=== PATIENT | female | born 1960 | race Two or more races ===

== ENCOUNTER 2024-11-21 09:23 | Emergency (ER) | payer MEDICARE, SELFPAY ==
--- NOTE | 2024-11-21 10:23 | XR_ITS ---
Examination: Wrist, right 3 views Technique: Wrist AP, oblique, lateral 3 views Date and time of exam: November 21, 2024 1027 hrs. Indications: Patient fell last week with injury to the wrist, wrist pain Findings: No definite acute fracture No dislocation No opaque foreign body Impression: No definite acute fracture
[2024-11-21 10:24] VITALS: BP 140/71; PULSE 51; RESP 16; TEMP 36.8; O2SAT 98; BMI 27.9
--- NOTE | 2024-11-21 10:58 | PD.EDHAND ---
Upper Extremity Injury RME/HPI General Chief Complaint: Hand/Wrist Problems Stated Complaint: right wrist pain s/p fall last sun. Time Seen by Provider: 11/21/24 09:33 Source: patient Arrival date/time: 11/21/24 09:23 This is a case of 64-year-old female who came into the emergency room due to right wrist pain and swelling history of present illness started 1 week prior to arrival in the emergency room when the patient accidentally fell and landed on the right wrist since then patient have pain and swelling denies any other injury denies any head neck chest or abdominal injury denies any numbness weakness or tingling sensation Limitations: no limitations Related Data Home Medications ?Medication ?Instructions ?Recorded ?Confirmed amiodarone 200 mg tablet 300 mg PO QDAY ##0 08/05/13 06/21/19 amlodipine 5 mg-benazepril 40 mg 1 cap PO QDAY #0 caps 08/05/13 06/21/19 capsule carvedilol 25 mg tablet (Coreg) 12.5 mg PO BID #0 tabs 08/05/13 06/21/19 digoxin 125 mcg (0.125 mg) tablet 125 mcg PO QA ##0 08/05/13 06/21/19 thyroid (pork) 60 mg tablet 60 mg PO QDAY #0 tabs 08/05/13 06/21/19 ([place] Thyroid) furosemide 40 mg tablet (Lasix) 40 mg PO QDAY #0 tabs 07/25/14 06/21/19 estradiol-norethindrone acet 1 1 tab PO QDAY 06/18/19 06/21/19 mg-0.5 mg tablet (Mimvey) mirabegron 50 mg tablet,extended 50 mg PO QDAY 06/18/19 06/21/19 release 24 hr (Myrbetriq) nitroglycerin 0.4 mg sublingual 0.4 mg buccal DAILY PRN Chest Pain 06/18/19 06/18/19 tablet potassium chloride 10 mEq 10 meq PO Q OTHER DAY 06/18/19 06/21/19 capsule,extended release Previous Rx's ?Medication ?Instructions ?Recorded naproxen 500 mg tablet 500 mg PO BID PRN pain #20 tabs 11/21/24 Allergies Allergy/AdvReac Type Severity Reaction Status Date / Time shellfish derived Allergy Severe Swelling Verified 11/21/24 09:26 of Lip/Tongue/Throat erythromycin base Allergy Intermediate Vomiting Verified 11/21/24 09:26 Review of Systems Review of Systems Systems Reviewed: All systems reviewed, normal except as documented Constitutional Constitutional: Reports system reviewed and no additional complaints, except as documented and Reports as per HPI ENT Ears, Nose, Mouth, and Throat: Denies neck pain Cardiovascular Cardiovascular: Reports system reviewed and no additional complaints, except as documented and Reports as per HPI Respiratory Respiratory: Reports system reviewed and no additional complaints, except as documented and Reports as per HPI Gastrointestinal Gastrointestinal: Reports system reviewed and no additional complaints, except as documented and Reports as per HPI Musculoskeletal Musculoskeletal: Reports system reviewed and no additional complaints, except as documented, Reports as per HPI, Denies abnormal gait, Denies arthralgias, Denies atrophy, Denies back pain, Denies deformity, Denies joint swelling, Denies limited range of motion, Denies loss of height, Denies muscle cramps, Denies muscle weakness, Denies myalgias, Denies neck pain, Denies numbness, Denies radiating pain into limb, Denies stiffness, Denies tingling and Reports other (Right wrist pain) Neurologic Neurologic: Reports system reviewed and no additional complaints, except as documented, Reports as per HPI, Denies abnormal gait, Denies numbness and Denies tingling Past Medical History Past Medical History NEUROLOGIC: Positive Neurological Disorders and Migraine (INJECTION); Negative Seizures CARDIAC: Positive Cardiac Disorders, Congestive Heart Failure and Hypertension (TAKES MED); Negative Valvular Heart Disease, Edema or Cellulitis RESPIRATORY: Positive Sleep Apnea ([facility] 2016); Negative Chronic Obstructive Pulmonary Disease (COPD) GASTROINTESTINAL: Positive Gastrointestinal Disorders and Gall Bladder Disease (LAP); Negative Hepatitis GENITOURINARY: Negative Genitourinary Disorders or Renal Disease REPRODUCTIVE: Positive Previous Pregnancies (X4) MUSCULOSKELETAL: Positive Carpal Tunnel Syndrome (RIGHT); Negative Musculoskeletal Disorders ENDOCRINE: Positive Endocrine Disorders and Hypothyroidism (TAKES MED); Negative Diabetes Mellitus Type 1 or Diabetes Mellitus Type 2 HEMATOLOGIC: Negative Blood Disorders OTHER HISTORY: Positive Chicken Pox and Measles; Negative Hospitalization, Autoimmune Disease, Shingles, Falls, Blood Transfusions, Anesthesia Reactions, Chemotherapy, Radiation Therapy, MRSA, Mumps or Cancer Family History FAMILY HISTORY: Positive Family Cardiac Disorders (MOTHER (HTN,CVA),FATHER (HEART)) and Family Surgery (MOTHER,FATHER,BROTHER,SISTER); Negative Family Psychiatric Problems, Family Respiratory Disorders, Family Gastrointestinal Problems, Family Cancer or Family Anesthesia Reaction Surgical History SURGICAL: Positive Cardiac Surgery, Pacemaker (AICD LEFT CHEST), Angiogram and Auto Implanted Cardiovert Defib (LEFT CHEST) Social History SMOKING STATUS: Never smoker ED Exam General Limitations: Present no limitations General appearance: Present alert and in no apparent distress Head Head exam: Present atraumatic, normocephalic and normal inspection Eye Eye exam: Present normal appearance, PERRL and EOMI ENT ENT exam: Present normal exam, normal oropharynx and mucous membranes moist Neck Neck exam: Present normal inspection, full ROM and trachea midline; Absent tenderness, meningismus, lymphadenopathy or thyromegaly Chest Chest inspection: Present normal inspection and symmetric chest wall rise Respiratory Respiratory exam: Present normal lung sounds bilaterally; Absent respiratory distress, wheezes, stridor, accessory muscle use or prolonged expiratory phase Cardiovascular Cardiovascular exam: Present regular rate, normal rhythm and normal heart sounds; Absent bradycardia, tachycardia, irregular rhythm or systolic murmur Abdominal Exam Abdominal exam: Present soft and normal bowel sounds Extremities Exam Extremities exam: Present normal inspection and full ROM Expanded Upper Extremity Exam Forearm/Wrist exam: Present tenderness (Noted moderate tenderness on the right wrist distal with mild swelling no crepitation no deformity no redness ROM is limited due to pain neurovascular intact hand elbow and fingers are normal exam) and swelling; Absent abrasion, laceration, ecchymosis, deformity, crepitus, dislocation, erythema, tenderness over anatomical snuff box or pain with axial thumb loading Back Exam Back exam: Present normal inspection and full ROM Neurological Exam Neurological exam: Present alert, oriented X3, CN II-XII intact, normal gait and reflexes normal; Absent motor sensory deficit Psychiatric Psychiatric exam: Present normal affect and normal mood Skin Skin exam: Present warm, dry, intact and normal color Course Quality Measures none Orders Category Date Time Status Splint / Immobilizer STAT Care 11/21/24 10:57 Active XR wrist RT 2V Stat Exams 11/21/24 10:23 Taken Vital Signs Vital signs: Vital Signs Temperature 98.2 F 11/21/24 10:24 Pulse Rate 51 L 11/21/24 10:24 Respiratory Rate 16 11/21/24 10:24 Blood Pressure 140/71 H 11/21/24 10:24 Pulse Oximetry (%) 98 11/21/24 10:24 Oxygen saturation is 98% on room air normal Extremity Injury MDM Narrative MDM Narrative:: This is a case of 64-year-old female who came into the emergency room due to right wrist pain and swelling history of present illness started 1 week prior to arrival in the emergency room when the patient accidentally fell and landed on the right wrist since then patient have pain and swelling denies any other injury denies any head neck chest or abdominal injury denies any numbness weakness or tingling sensation physical examination patient is awake alert oriented not in distress nontoxic looking patient noted to have moderate tenderness on the right wrist with mild swelling no crepitation no deformity no redness ROM is limited due to pain neurovascular intact hands fingers and elbow were normal exam no snuffbox tenderness patient x-ray showed a distal radial fracture splint was applied patient tolerated well neurovascular intact she was advised to follow-up with PCP to be referred to Ortho for further evaluation and treatment of the wrist fracture patient will continue RICE treatment at home Naprosyn for pain Patient was discharged with comfortable condition walking with stable gait. Patient verbalized no further complains explained diagnosis and answered patient question. Patient is comfortable with the proposed management plan including the need to follow up with his/her primary care physician and any specialist if applicable Discussed patient for any urgent condition or worsening sx, He/She needed to go to emergency room immediately or call 911. Patient acknowledge the responsibility to follow up as instructed and to monitor her/his symptoms. For any persistence of the symptoms for more than 3-5 days return precaution advised. Discussed the result of the test and was given printed discharge instruction Patient data External records reviewed:: [facility] previous records Clinical information provided by:: patient Social determinants that could affect healthcare access:: none Patient has the following chronic illnesses:: None How is presenting disease/condition affected by chronic disease/condition?: no chronic disease Evaluation data The following diagnostics were reviewed and interpreted by me:: radiology exam(s) Lab and/or radiology exams considered but not ordered:: Reviewed Interpretation Summary: Reviewed Medications / Prescriptions Medications or Prescriptions considered but not ordered:: Given Medication administrations:: Given Consultations Consultation(s) initiated? (list below): No Diagnosis Upper Extremity Injury Differential Diagnosis: fracture of wrist Most likely diagnosis given after review of the tests above:: Distal radial fracture Admission Indicated Admission indicated?: not indicated Explain why admission is indicated or not indicated:: Not indicated Admission Request Was there a request for admission?: No Admission Attestation Admission request attestation: Not indicated Disposition Plan Disposition Plan: Discharge Discharge Attestation Discharge Attestation: The patient and all family members were given an opportunity to ask questions and understood the discharge instructions. Discharge instructions specifically effects, indications for sooner follow up or return to the emergency department, and the expected course of current diagnosis. Patient condition: Stable Discharge Plan Plan Patient Disposition: HOME (Self Care) Prescriptions/Referrals Prescriptions/Med Rec: New naproxen 500 mg tablet 500 mg PO BID PRN (Reason: pain) Qty: 20 0RF No Action carvedilol [Coreg] 25 MG tablet 12.5 mg PO BID Qty: 0 amiodarone 200 mg Tablet 300 mg PO QDAY Qty: 0 digoxin 125 MCG tablet 125 mcg PO QA Qty: 0 amlodipine-benazepril 5-40 mg Capsule 1 cap PO QDAY Qty: 0 thyroid (pork) [[place] Thyroid] 60 MG tablet 60 mg PO QDAY Qty: 0 furosemide [Lasix] 40 MG tablet 40 mg PO QDAY Qty: 0 potassium chloride 10 mEq Capsule, Extended Release 10 meq PO Q OTHER DAY estradiol-norethindrone acet [Mimvey] 1-0.5 mg Tablet 1 tab PO QDAY nitroglycerin 0.4 mg Tablet, Sublingual 0.4 mg BUCCAL DAILY PRN (Reason: Chest Pain) Myrbetriq 50 mg Tablet Extended Release 24 Hr 50 mg PO QDAY Referrals: Barrera Urbina MD [Physician] - 11/22/24 6:00 am (For further evaluation and treatment of distal radial fracture right wrist) Bruce Hurley MD [Primary Care Provider] - In 1 week Problem List Clinical Impression: Distal radius fracture, right Patient/Caregiver Discharge Instructions Education Materials: Wrist Fracture, ED Fracture, Upper Extremity, ED RICE Additional Instructions: Follow-up with your primary care physician in 2 days for reevaluation and to be referred to orthopedic surgeon for further evaluation and treatment of distal radial fracture for any worsening symptoms or any emergent concerns such as numbness weakness tingling sensation go to the nearest emergency room or call 911 ice pack every 2 hours for 20 minutes for 24 hours then alternate with warm compress elevate to decrease swelling keep the splint in place until cleared by your primary care physician Print Language: Sinhala Stand Alone Forms: [employer] Info., Patient Portal Info Letter PA/ACTING INSTRUCTOR Supervising Physician PA/ACTING INSTRUCTOR Supervising Physician: DR SHEPARD
== END 2024-11-21 11:45 | disposition home or self-care (01) ==
PROVIDERS: Emergency Provider Emergency Medicine; PCP Family Medicine
DX: S52.501A Unspecified fracture of the lower end of right radius, initial encounter for closed fracture (principal); W19.XXXA Unspecified fall, initial encounter
CPT/HCPCS: 29125; 73100; 99283

== ENCOUNTER 2025-04-12 07:42 | Emergency (ER) | payer MEDICARE, BC, SELFPAY ==
--- NOTE | 2025-04-12 07:53 | PD.EDFALL ---
ED Fall Injury RME/HPI General Chief Complaint: Fall Stated Complaint: SLIPPED ON WET GRASS; LOWER BACK/R) RIB AREA PAIN Time Seen by Provider: 04/12/25 07:50 Arrival date/time: 04/12/25 07:42 RME / HPI RME / HPI Narrative: See [facility] for Dr. Coleman's HPI documentation. Related Data Home Medications ?Medication ?Instructions ?Recorded ?Confirmed amiodarone 200 mg tablet 300 mg PO QDAY ##0 08/05/13 06/21/19 amlodipine 5 mg-benazepril 40 mg 1 cap PO QDAY #0 caps 08/05/13 06/21/19 capsule carvedilol 25 mg tablet (Coreg) 12.5 mg PO BID #0 tabs 08/05/13 06/21/19 digoxin 125 mcg (0.125 mg) tablet 125 mcg PO QA ##0 08/05/13 06/21/19 thyroid (pork) 60 mg tablet 60 mg PO QDAY #0 tabs 08/05/13 06/21/19 ([place] Thyroid) furosemide 40 mg tablet (Lasix) 40 mg PO QDAY #0 tabs 07/25/14 06/21/19 estradiol-norethindrone acet 1 1 tab PO QDAY 06/18/19 06/21/19 mg-0.5 mg tablet (Mimvey) mirabegron 50 mg tablet,extended 50 mg PO QDAY 06/18/19 06/21/19 release 24 hr (Myrbetriq) nitroglycerin 0.4 mg sublingual 0.4 mg buccal DAILY PRN Chest Pain 06/18/19 06/18/19 tablet potassium chloride 10 mEq 10 meq PO Q OTHER DAY 06/18/19 06/21/19 capsule,extended release Previous Rx's ?Medication ?Instructions ?Recorded naproxen 500 mg tablet 500 mg PO BID PRN pain #20 tabs 11/21/24 acetaminophen 300 mg-codeine 30 mg 2 tab PO Q8H PRN pain #20 tabs 04/12/25 tablet cyclobenzaprine 5 mg tablet 5 mg PO TID PRN muscle spasm #15 11/18/25 tabs ibuprofen 600 mg tablet 600 mg PO TID PRN fever or pain 04/12/25 #30 tabs lidocaine 5 % topical patch 2 patch topical QDAY PRN pain #30 04/12/25 (Lidoderm) ea Allergies Allergy/AdvReac Type Severity Reaction Status Date / Time shellfish derived Allergy Severe Swelling Verified 04/12/25 07:45 of Lip/Tongue/Throat erythromycin base Allergy Intermediate Vomiting Verified 04/12/25 07:45 Review of Systems Review of Systems Systems Reviewed: All systems reviewed, normal except as documented Past Medical History Past Medical History NEUROLOGIC: Positive Neurological Disorders and Migraine CARDIAC: Positive Cardiac Disorders, Congestive Heart Failure and Hypertension RESPIRATORY: Positive Sleep Apnea GASTROINTESTINAL: Positive Gastrointestinal Disorders and Gall Bladder Disease REPRODUCTIVE: Positive Previous Pregnancies MUSCULOSKELETAL: Positive Carpal Tunnel Syndrome ENDOCRINE: Positive Endocrine Disorders and Hypothyroidism OTHER HISTORY: Positive Chicken Pox and Measles Family History FAMILY HISTORY: Positive Family Cardiac Disorders and Family Surgery Surgical History SURGICAL: Positive Cardiac Surgery, Pacemaker, Angiogram and Auto Implanted Cardiovert Defib Social History SMOKING STATUS: Never smoker ED Exam Narrative Physical exam: See MDM for Dr. Coleman's physical exam documentation. Course Quality Measures none Orders Category Date Time Status Miscellaneous Nursing Order NOW Care 04/12/25 11:35 Completed Saline [Insert IV] NOW Care 04/12/25 08:[address] lumbar spine wo con Stat Exams 04/12/25 08:10 Completed XR ribs RT min 3V w CXR1V Stat Exams 04/12/25 08:10 Completed Bilirubin,Direct Stat Lab 04/12/25 08:23 Completed CBC Stat Lab 04/12/25 08:23 Completed CMP [Comprehensive Metabolic Panel] Stat Lab 04/12/25 08:23 Completed Free T3 Stat Lab 04/12/25 08:23 Completed Free T4 (Free Thyroxine) Stat Lab 04/12/25 08:23 Completed Magnesium Stat Lab 04/12/25 08:23 Completed TSH [Thyroid Stimulating Hormone] Stat Lab 04/12/25 08:23 Completed UA, C/S IF [Urinalysis, C/S if Indicated] Stat Lab 04/12/25 08:30 Completed Ketorolac Inj [Toradol Inj] Med 04/12/25 08:04 Discontinued 15 mg IVP X1 ONE Morphine* Inj Med 04/12/25 08:04 Discontinued 2 mg IV X1 ONE Morphine* Inj Med 04/12/25 10:06 Discontinued 4 mg IV X1 ONE Ondansetron Inj [Zofran Inj] Med 04/12/25 08:04 Discontinued 4 mg IVP X1 ONE POTASSIUM CHL 10% Liq 15 ML Med 04/12/25 09:44 Discontinued 40 meq PO X1 ONE Sodium Chloride 0.9% 1000 ml [Ns] 1,000 ml Med 04/12/25 08:04 Discontinued IV 999 mls/hr Vital Signs Vital signs: Vital Signs Temperature 97.8 F 04/12/25 08:04 Pulse Rate 56 L 04/12/25 08:04 Respiratory Rate 18 04/12/25 08:04 Blood Pressure 183/82 H 04/12/25 08:04 Pulse Oximetry (%) 98 04/12/25 08:04 Oxygen Delivery Method Room Air 04/12/25 08:04 Pulse ox is 98% on room air which is adequate. Fall MDM Narrative MDM Narrative:: This section includes all my notes and documentations, including HPI, PE, and ED course. Benja Coleman MD HPI: 65-year-old female here after falling outside just [employer]. Slipped in the rain and landed on her back and buttocks. No head injury. No headache. No neck pain. Has back pain and right rib pain. No abdominal pain. No pain in arms or legs. No other complaints. ROS: All negative except as documented in HPI. Physical Exam: General:? Alert and oriented.? In obvious pain. Eyes:? Conjunctivae and lids clear.? EOMI.? PERRL. ENT:? No signs of head trauma. Neck:? Supple.? No tenderness. Heart:? RRR. Lungs:? No respiratory distress.? Good air movement.? No rhonchi, wheezing, rales.? Chest:? Right ribcage tenderness, difficult to localize. Abdomen:? Soft and nontender.? Normal bowel sounds.? No distension.? No rebound or guarding.? Back:? Lumbar spinal tenderness.? Skin:? Warm and dry.? Neuro:? Alert and oriented X 3.? Cranial Nerves II-XII grossly intact.? No peripheral motor deficits. Musculoskeletal:? All major joints and bones are not tender with no limited ROM. I reviewed all diagnostic test results: My interpretation of the ribs x-ray is no acute fracture. My review of the CT report is acute T12 and L3 compression fractures and L5-S1 stenosis. Blood tests and urine tests is remarkable for K 3.3. At this point, diagnoses include: T12 compression fracture L3 compression fracture. Compression fracture of L3 vertebra Sciatica Treatment here included: IVF Toradol 15 mg IV Zofran 4 IV Morphine 2 mg then 4 mg IV Oral KCl 40 meq Back brace She felt much better. I discussed the case with our orthopedic surgeon, Dr. Urbina.? About the presentation and exam and diagnostics and treatments here.? And need of further care in the hospital.? After reviewing the case, including CT scans and reports, recommended outpatient followup. Based on my best medical judgment, made decision no further evaluation or treatment indicated at this time. Patient understands and agrees to the discharge instructions customized and printed, see below. Discharge Instructions from Dr. Coleman: --After evaluation, you sustained T12 compression fracture and L2 compression fracture and sciatica. See attached handouts. --We discussed your findings with our orthopedic surgeon, Dr. Urbina, and he recommended outpatient care and follow-up. --Wear the back brace until cleared by a doctor taking care of you. -- Rest today and tomorrow then try to resume your normal chores and activities.? Because inactivity is terrible for this condition.? And activity won?t make your condition worse.? Use a cane of stick to help stand and walk.? --Use Ibuprofen and Cyclobenzaprine and Tylenol with codeine and lidocaine patches as needed.? Don't expect the pain to go away completely, hoping to take the edge off.?? --Apply ice or heat if helpful. --Despite the pain, take 3 very deep breaths every hour while you are awake. To keep your lungs inflated. --See a private doctor (outside the ER) on 04/13/25 for further care. Ask for help to see online merchandising specialist. --Seek immediate medical care with paralysis in your foot, losing control of your bladder or bowels, saddle numbness (anal numbness), or with any concerns.?? Benja Coleman MD Patient data External records reviewed:: [facility] previous records Clinical information provided by:: patient Social determinants that could affect healthcare access:: none Patient has the following chronic illnesses:: HTN How is presenting disease/condition affected by chronic disease/condition?: uneffected by Evaluation data The following diagnostics were reviewed and interpreted by me:: lab results and radiology exam(s) Lab and/or radiology exams considered but not ordered:: None Interpretation Summary: I reviewed all diagnostic test results: My interpretation of the ribs x-ray is no acute fracture. My review of the CT report is acute T12 and L3 compression fractures and L5-S1 stenosis. Blood tests and urine tests is remarkable for K 3.3. Medications / Prescriptions Medications or Prescriptions considered but not ordered:: None Medication administrations:: Medication Administration History Discontinued Medications Sodium Chloride (Ns) 1,000 mls @ 999 mls/hr IV .Q1H1M ONE Stop: 04/12/25 09:04 Last Infusion: 04/12/25 09:45 Dose: Infused Documented By: Admin: 04/12/25 08:26 Dose: 999 mls/hr Documented By: BY Ketorolac Tromethamine (Ketorolac Inj 30 Mg/Ml Vial) 15 mg IVP X1 ONE Stop: 04/12/25 08:05 Last Admin: 04/12/25 08:24 Dose: 15 mg Documented By: BY Morphine Sulfate (Morphine Sulf Inj 4 Mg/Ml Vial) 2 mg IV X1 ONE Stop: 04/12/25 08:05 Last Admin: 04/12/25 08:25 Dose: 2 mg Documented By: BY Morphine Sulfate (Morphine Sulf Inj 4 Mg/Ml Vial) 4 mg IV X1 ONE Stop: 04/12/25 10:07 Last Admin: 04/12/25 10:15 Dose: 4 mg Documented By: BY Ondansetron HCl (Ondansetron Inj 2 Mg/Ml Inj 2 Ml) 4 mg IVP X1 ONE; Protocol Stop: 04/12/25 08:05 Last Admin: 04/12/25 08:22 Dose: 4 mg Documented By: BY Potassium Chloride (Potassium Chloride 10% 20 Meq/15 Ml Udc) 40 meq PO X1 ONE Stop: 04/12/25 09:45 Last Admin: 04/12/25 09:51 Dose: 40 meq Documented By: BY Treatment here included: IVF Toradol 15 mg IV Zofran 4 IV Morphine 2 mg then 4 mg IV Oral KCl 40 meq Back brace Consultations Consultation(s) initiated? (list below): Yes Consultation #1 (Physician, Specialty, Details): I discussed the case with our orthopedic surgeon, Dr. Urbina.? About the presentation and exam and diagnostics and treatments here.? And need of further care in the hospital.? After reviewing the case, including CT scans and reports, recommended outpatient followup. Diagnosis Fall Differential Diagnosis: syncope and compression fracture Most likely diagnosis given after review of the tests above:: Treatment here included: IVF Toradol 15 mg IV Zofran 4 IV Morphine 2 mg then 4 mg IV Oral KCl 40 meq Back brace Admission Indicated Admission indicated?: not indicated Explain why admission is indicated or not indicated:: I discussed the case with our orthopedic surgeon, Dr. Urbina.? About the presentation and exam and diagnostics and treatments here.? And need of further care in the hospital.? After reviewing the case, including CT scans and reports, recommended outpatient followup. Admission Request Was there a request for admission?: No Disposition Plan Disposition Plan: Discharge Discharge Attestation Discharge Attestation: The patient and all family members were given an opportunity to ask questions and understood the discharge instructions. Discharge instructions specifically effects, indications for sooner follow up or return to the emergency department, and the expected course of current diagnosis. Patient condition: Stable Discharge Plan Plan Patient Disposition: HOME (Self Care) Prescriptions/Referrals Prescriptions/Med Rec: New acetaminophen-codeine 300-30 mg tablet 2 tab PO Q8H MDD 6 PRN (Reason: pain) Qty: 20 0RF lidocaine [Lidoderm] 5 % adhesive patch,medicated 2 patch topical QDAY PRN (Reason: pain) Qty: 30 0RF Rx Instructions: leave on most painful area for up to 12 hrs ibuprofen 600 mg tablet 600 mg PO TID PRN (Reason: fever or pain) Qty: 30 0RF cyclobenzaprine 5 mg tablet 5 mg PO TID PRN (Reason: muscle spasm) Qty: 15 0RF No Action carvedilol [Coreg] 25 MG tablet 12.5 mg PO BID Qty: 0 amiodarone 200 mg Tablet 300 mg PO QDAY Qty: 0 digoxin 125 MCG tablet 125 mcg PO QA Qty: 0 amlodipine-benazepril 5-40 mg Capsule 1 cap PO QDAY Qty: 0 thyroid (pork) [[place] Thyroid] 60 MG tablet 60 mg PO QDAY Qty: 0 furosemide [Lasix] 40 MG tablet 40 mg PO QDAY Qty: 0 potassium chloride 10 mEq Capsule, Extended Release 10 meq PO Q OTHER DAY estradiol-norethindrone acet [Mimvey] 1-0.5 mg Tablet 1 tab PO QDAY nitroglycerin 0.4 mg Tablet, Sublingual 0.4 mg BUCCAL DAILY PRN (Reason: Chest Pain) Myrbetriq 50 mg Tablet Extended Release 24 Hr 50 mg PO QDAY naproxen 500 mg tablet 500 mg PO BID PRN (Reason: pain) Qty: 20 0RF Referrals: Bruce Hurley MD [Primary Care Provider, Family Practice] - In 1 week Problem List Clinical Impression: T12 compression fracture, Compression fracture of L3 vertebra, Sciatica Patient/Caregiver Discharge Instructions Discharge Activity: activity as tolerated Education Materials: ED Fracture, Vertebral Compression, ED Sciatica Additional Instructions: Discharge Instructions from Dr. Coleman: --After evaluation, you sustained T12 compression fracture and L2 compression fracture and sciatica. See attached handouts. --We discussed your findings with our orthopedic surgeon, Dr. Urbina, and he recommended outpatient care and follow-up. --Wear the back brace until cleared by a doctor taking care of you. -- Rest today and tomorrow then try to resume your normal chores and activities.? Because inactivity is terrible for this condition.? And activity won?t make your condition worse.? Use a cane of stick to help stand and walk.? --Use Ibuprofen and Cyclobenzaprine and Tylenol with codeine and lidocaine patches as needed.? Don't expect the pain to go away completely, hoping to take the edge off.?? --Apply ice or heat if helpful. --Despite the pain, take 3 very deep breaths every hour while you are awake. To keep your lungs inflated. --See a private doctor (outside the ER) on for further care. Ask for help to see online merchandising specialist. --Seek immediate medical care with paralysis in your foot, losing control of your bladder or bowels, saddle numbness (anal numbness), or with any concerns.?? Print Language: Amharic Stand Alone Forms: [employer] Award Info., Patient Portal Info Letter
[2025-04-12 08:04] VITALS: BP 183/82; PULSE 56; RESP 18; TEMP 36.6; O2SAT 98
--- NOTE | 2025-04-12 08:10 | XR_ITS ---
Examination: Ribs, right, with PA chest, 5 views Technique: Chest PA, RIBS AP, RPO, LPO, AP coned lower ribs 5 views Exam date and time: April 12 2025, 1035 hours INDICATIONS: Patient fell today with injury of the right chest, right rib pain Findings: Mild prominence left ventricle Cardiac leads satisfactory position No pneumothorax Old fracture right eighth rib posteriorly No acute rib fractures IMPRESSION: No pneumothorax, pulmonary contusion or hemothorax Old fracture right eighth rib No acute rib fractures
--- NOTE | 2025-04-12 08:10 | XR_ITS ---
Examination: CT lumbar spine, without contrast. 2-D sagittal reconstructions. 2-D coronal reconstructions. 3-D reconstructions. Date and time of exam: April 12, 2025, 0856 hours INDICATIONS: Patient fell today with injury to the lower back, lower back pain CTDI: vol (mGy): 31.9 DLP: (mGycm): 938 Technique: Multiple 1.25 mm axial sections of the lumbar spine without intravenous contrast have been obtained. 2-D sagittal and coronal reconstructions have been obtained. 3-D reconstructions have been obtained. Low dose protocols were performed. One or more of the following dose reduction techniques were used; automated exposure control, adjustment of the mA and/or KV according to patient size, use of iterative reconstruction technique. Findings: Severe osteopenia Acute compression fracture T12, depression superior endplate, reduction in height 60% Retropulsion of the posterior inferior margin of this vertebral body 4 mm Acute fracture L3 vertebral body, depression superior endplate, reduction in height 10% Grade 1 anterolisthesis L4 on L5 Moderate disc narrowing L4-L5, L5-S1 L5-S1 moderate overall spinal stenosis including moderate left L5 ganglionic compression IMPRESSION: Acute compression fractures T12 and L3 as above L5-S1 moderate overall spinal stenosis including moderate left L5 ganglionic compression
[2025-04-12] MEDS: ONDANSETRON INJ 2 MG/ML INJ 2 ML 4 MG IVP (08:22)
[2025-04-12] MEDS: KETOROLAC INJ 30 MG/ML VIAL 15 MG IVP (08:24)
[2025-04-12] MEDS: MORPHINE SULF INJ 4 MG/ML VIAL 2 MG IV (08:25)
[2025-04-12] MEDS: SODIUM CHLORIDE 0.9% 1000 ML 1,000 ML 999 ML IV (08:26)
[2025-04-12 08:44] LABS: Basophils # (Auto) 0.0 Thou/mm3 (0.0-0.2); Basophils % (Auto) 1 % (0-2.5); Eosinophils # (Auto) 0.1 Thou/mm3 (0.0-0.5); Eosinophils % (Auto) 3 % (0-10); Hematocrit 41.7 % (36.0-46.0); Hemoglobin 13.7 g/dL (12.0-16.0); Immature Granulocytes Auto 0.05 Thou/mm3 (0.00-0.00); Lymphocytes # (Auto) 1.5 Thou/mm3 (1.0-4.8); Lymphocytes % (Auto) 32 % (10-50); Mean Corpuscular HGB Conc 32.9 g/dl (31.0-37.0); Mean Corpuscular Hemoglobin 32.2 pg (25.0-35.0); Mean Corpuscular Volume 98 fL (80-100); Monocytes # (Auto) 0.4 Thou/mm3 (0.0-0.8); Monocytes % (Auto) 9 % (0-12); Neutrophils # (Auto) 2.6 Thou/mm3 (1.8-7.7); Neutrophils % (Auto) 55 % (37-80); Nucleated Red Blood Cell # 0.00 Thou/mm3 (0.00-0.00); Nucleated Red Blood Cell % 0 /100 WBC (0); Platelet Count 169 Thou/mm3 (140-440); RDW Standard Deviation 51.8 fL (36.4-46.3); Red Blood Count 4.26 Miln/mm3 (4.00-5.20); White Blood Count 4.8 Thou/mm3 (3.6-11.0)
[2025-04-12 08:45] LABS: Collection Type, Urine Clean Catch
[2025-04-12 08:54] LABS: Bacteria,Urine Rare; Bilirubin,Urine Negative (Negative); Blood,Urine Trace (Negative); Clarity,Urine Clear (Clear/Hazy); Color,Urine Lt-Yellow (Lt Yel-Yel); Culture Indicated,Urine Not Indicated; Glucose, Urine Negative (Negative); Ketones,Urine Negative (Negative); Leukocyte Esterase,Urine Negative (Negative); Nitrite,Urine Negative (Negative); PH,Urine 7.0 (5.0-7.0); Protein,Urine Trace (Neg - Trace); RBC,Urine 9 /hpf (0-3); Specific Gravity,Urine 1.016 (1.001-1.035); Squamous Epithelial Cell,Urine 3 /hpf (0-5); Urobilinogen,Urine Negative mg/dL (0.0-1.0); WBC,Urine 1 /hpf (0-5)
[2025-04-12 09:00] LABS: Alanine Aminotransferase 13 U/L (10-49); Albumin, Serum 3.5 gm/dL (3.4-4.8); Albumin/Globulin Ratio 0.8 (1.2-2.2); Alkaline Phosphatase 120 U/L (46-116); Anion Gap 11 (7-16); Aspartate Amino Transferase 38 U/L (0-34); BUN/Creatinine Ratio 12 Ratio (12-20); Bilirubin,Direct 0.2 mg/dL (0.0-0.3); Bilirubin,Total 0.6 mg/dL (0.3-1.2); Blood Urea Nitrogen 11 mg/dL (9-23); Calcium 8.4 mg/dL (8.3-10.6); Calcium (Corrected) 8.8 mg/dL (8.5-10.1); Carbon Dioxide 25.8 mMol/L (20.0-31.0); Chloride 107 mMol/L (98-107); Creatinine (Component) 0.9 mg/dL (0.6-1.3); Estimated Creatinine Clearance 56.6 mL/min (>60); Free T4 (Free Thyroxine) 1.18 ng/dL (0.89-1.76); Globulin 4.2 gm/dL (2.3-3.5); Glucose 99 mg/dL (74-106); Magnesium 2.0 mg/dL (1.6-2.6); Osmolality,Calculated 286 (275-295); Potassium 3.3 mMol/L (3.4-5.1); Sodium 144 mMol/L (136-145); Thyroid Stimulating Hormone 1.44 uIU/mL (0.55-4.78); Total Protein 7.7 gm/dL (5.7-8.2); eGFR > 60 See Note
[2025-04-12 09:01] LABS: Free T3 2.4 pg/mL (2.3-4.2)
[2025-04-12 09:51] VITALS: BP 166/72; PULSE 57; RESP 16; O2SAT 97
[2025-04-12] MEDS: POTASSIUM CHLORIDE 10% 20 MEQ/15 ML UDC 40 MEQ PO (09:51)
[2025-04-12 10:00] VITALS: BP 152/78; PULSE 53; RESP 20; TEMP 36.6; O2SAT 94
[2025-04-12] MEDS: MORPHINE SULF INJ 4 MG/ML VIAL IV (10:15)
[2025-04-12 11:25] VITALS: BP 158/78; PULSE 54; RESP 18; O2SAT 97
--- NOTE | 2025-04-12 11:46 | PC.NURSE ---
patient given tlso brace , applied and paper signed at this time
[2025-04-12 12:02] VITALS: BP 153/68; PULSE 54; TEMP 36.6; O2SAT 93
[2025-04-12 12:03] VITALS: BP 153/68; PULSE 54; RESP 18; O2SAT 96
== END 2025-04-12 12:12 | disposition home or self-care (01) ==
PROVIDERS: Emergency Provider Emergency Medicine; PCP Family Medicine
DX: S22.080A Wedge compression fracture of T11-T12 vertebra, initial encounter for closed fracture (principal); S32.038A Other fracture of third lumbar vertebra, initial encounter for closed fracture; M54.40 Lumbago with sciatica, unspecified side; W01.0XXA Fall on same level from slipping, tripping and stumbling without subsequent striking against object, initial encounter
CPT/HCPCS: 36415; 71101; 72131; 80053; 81001; 82248; 83735; 84439; 84443; 84481; 85025; 96361; 96374; 96375; 99284; J1885; J2270; J2405; J7030; A9270

== ENCOUNTER 2025-05-25 10:00 | Emergency (ER) | payer MEDICARE, BC, SELFPAY ==
[2025-05-25 10:01] VITALS: BMI 27.1
[2025-05-25 10:08] VITALS: BP 156/72; PULSE 56; RESP 17; TEMP 36.6; O2SAT 97; BMI 27.1
--- NOTE | 2025-05-25 10:20 | PD.EDBACK ---
ED Back Injury Pain RME/HPI General Chief Complaint: Back Pain/Injury Stated Complaint: RIGHT HIP/BACK PAIN SP FALL AND FX ON 05/12 Time Seen by Provider: 05/25/25 10:10 Arrival date/time: 05/25/25 10:00 RME / HPI RME / HPI Narrative: See [facility] for Dr. Coleman's HPI documentation. Related Data Home Medications ?Medication ?Instructions ?Recorded ?Confirmed amiodarone 200 mg tablet 300 mg PO QDAY ##0 08/05/13 06/21/19 amlodipine 5 mg-benazepril 40 mg 1 cap PO QDAY #0 caps 08/05/13 06/21/19 capsule carvedilol 25 mg tablet (Coreg) 12.5 mg PO BID #0 tabs 08/05/13 06/21/19 digoxin 125 mcg (0.125 mg) tablet 125 mcg PO QA ##0 08/05/13 06/21/19 thyroid (pork) 60 mg tablet 60 mg PO QDAY #0 tabs 08/05/13 06/21/19 ([place] Thyroid) furosemide 40 mg tablet (Lasix) 40 mg PO QDAY #0 tabs 07/25/14 06/21/19 estradiol-norethindrone acet 1 1 tab PO QDAY 06/18/19 06/21/19 mg-0.5 mg tablet (Mimvey) mirabegron 50 mg tablet,extended 50 mg PO QDAY 06/18/19 06/21/19 release 24 hr (Myrbetriq) nitroglycerin 0.4 mg sublingual 0.4 mg buccal DAILY PRN Chest Pain 06/18/19 06/18/19 tablet potassium chloride 10 mEq 10 meq PO Q OTHER DAY 06/18/19 06/21/19 capsule,extended release Previous Rx's ?Medication ?Instructions ?Recorded naproxen 500 mg tablet 500 mg PO BID PRN pain #20 tabs 11/21/24 acetaminophen 300 mg-codeine 30 mg 2 tab PO Q8H PRN pain #20 tabs 04/12/25 tablet cyclobenzaprine 5 mg tablet 5 mg PO TID PRN muscle spasm #15 04/12/25 tabs ibuprofen 600 mg tablet 600 mg PO TID PRN fever or pain 04/12/25 #30 tabs lidocaine 5 % topical patch 2 patch topical QDAY PRN pain #30 04/12/25 (Lidoderm) ea acetaminophen 300 mg-codeine 30 mg 2 tab PO Q8H PRN pain #20 tabs 05/25/25 tablet cyclobenzaprine 5 mg tablet 5 mg PO TID PRN muscle spasm #15 05/25/25 tabs ibuprofen 600 mg tablet 600 mg PO TID PRN fever or pain 05/25/25 #30 tabs lidocaine 5 % topical patch 2 patch topical QDAY PRN pain #30 05/25/25 (Lidoderm) ea Allergies Allergy/AdvReac Type Severity Reaction Status Date / Time shellfish derived Allergy Severe Swelling Verified 05/25/25 10:03 of Lip/Tongue/Throat erythromycin base Allergy Intermediate Vomiting Verified 05/25/25 10:03 Review of Systems Review of Systems Systems Reviewed: All systems reviewed, normal except as documented Past Medical History Past Medical History NEUROLOGIC: Positive Neurological Disorders and Migraine CARDIAC: Positive Cardiac Disorders, Congestive Heart Failure and Hypertension RESPIRATORY: Positive Sleep Apnea GASTROINTESTINAL: Positive Gastrointestinal Disorders and Gall Bladder Disease REPRODUCTIVE: Positive Previous Pregnancies MUSCULOSKELETAL: Positive Carpal Tunnel Syndrome ENDOCRINE: Positive Endocrine Disorders and Hypothyroidism OTHER HISTORY: Positive Chicken Pox and Measles Family History FAMILY HISTORY: Positive Family Cardiac Disorders and Family Surgery Surgical History SURGICAL: Positive Cardiac Surgery, Pacemaker, Angiogram and Auto Implanted Cardiovert Defib Social History SMOKING STATUS: Never smoker ED Exam Narrative Physical exam: See MDM for Dr. Coleman's physical exam documentation. Course Quality Measures none Orders Category Date Time Status Morphine* Inj Med 05/25/25 10:20 Discontinued 8 mg IM X1 ONE Vital Signs Vital signs: Vital Signs Temperature 97.8 F 05/25/25 10:08 Pulse Rate 56 L 05/25/25 10:08 Respiratory Rate 17 05/25/25 10:08 Blood Pressure 156/72 H 05/25/25 10:08 Pulse Oximetry (%) 97 05/25/25 10:08 Oxygen Delivery Method Room Air 05/25/25 10:08 Pulse ox is 97% on room air which is adequate. Back Pain / Injury MDM Narrative MDM Narrative:: This section includes all my notes and documentations, including HPI, PE, and ED course. Benja Coleman MD HPI: 65-year-old female here with right-sided low back pain radiating into right leg for several days. A couple months ago (04/09/2025), CT scan showed lumbar spinal stenosis. No paralysis. No numbness or tingling. No loss of control of the bladder or bowels. No saddle numbness. No other complaints. ROS: All negative except as documented in HPI. Physical Exam: General: Alert and oriented. In obvious pain. Eyes: Conjunctivae and lids clear. ENT: No nasal congestion. Neck: Supple. Lungs: No respiratory distress. Abdomen: Soft and nontender. Normal bowel sounds. No distension. No rebound or guarding. Back: Equivocal lumbar spinal tenderness. Limited range of motion due to pain. Right straight leg raise equivocal. Legs: No clubbing, cyanosis, edema. Skin: Warm and dry. Neuro: Alert and oriented X 3. No peripheral motor deficits. At this point, diagnoses include: Sciatica Treatment here included: Morphine 8 mg IM Significant improvement noted. Recommended supportive care and outpatient follow-up. Based on my best medical judgment, made decision no further evaluation or treatment indicated at this time. Patient understands and agrees to the discharge instructions customized and printed, see below. Discharge Instructions from Dr. Coleman: --After evaluation, we are dealing with Sciatica (same as Lumbar Radiculopathy or Spinal Stenosis) where pinched nerve is causing your symptoms.? --This condition is difficult because normal pain medications don?t work very well on nerve pain. --Despite the pain, try to resume your normal chores and activities.? Because inactivity is terrible for this condition.? And activity won?t make your condition worse.? Use a cane of stick in your left hand to help stand and walk.? --Use Ibuprofen and Cyclobenzaprine and Tylenol with codeine and lidocaine patches as needed.? Don't expect the pain to go away completely, hoping to take the edge off.?? --When resting and sleeping, try leftt sided position (with your knees to your chest and bending forward).? This can take some pressure off the nerve and help your pain. --Apply ice or heat if helpful. --See your spinal surgeon next week as scheduled. --Seek immediate medical care with paralysis in your foot, losing control of your bladder or bowels, saddle numbness (anal numbness), or with any concerns.??\ Benja Coleman MD Patient data External records reviewed:: [facility] previous records Clinical information provided by:: patient Social determinants that could affect healthcare access:: none Patient has the following chronic illnesses:: Hypertension How is presenting disease/condition affected by chronic disease/condition?: exacerbated by Evaluation data The following diagnostics were reviewed and interpreted by me:: other (specify) (No diagnostics ordered ) Lab and/or radiology exams considered but not ordered:: None Interpretation Summary: No diagnostics were ordered. Medications / Prescriptions Medications or Prescriptions considered but not ordered:: None Medication administrations:: Medication Administration History Discontinued Medications Morphine Sulfate (Morphine Sulf Inj 4 Mg/Ml Vial) 8 mg IM X1 ONE Stop: 05/25/25 10:21 Last Admin: 05/25/25 10:42 Dose: 8 mg Documented By: Treatment here included: Morphine 8 mg IM Consultations Consultation(s) initiated? (list below): No Diagnosis Differential diagnosis back pain/injury: lumbar radiculopathy, sciatica and strain of lumbar region Most likely diagnosis given after review of the tests above:: At this point, diagnoses include: Sciatica Admission Indicated Admission indicated?: not indicated Explain why admission is indicated or not indicated:: With significant improvement and no condition needing emergent intervention, there was no indication for admission. Admission Request Was there a request for admission?: No Disposition Plan Disposition Plan: Discharge Discharge Attestation Discharge Attestation: The patient and all family members were given an opportunity to ask questions and understood the discharge instructions. Discharge instructions specifically effects, indications for sooner follow up or return to the emergency department, and the expected course of current diagnosis. Patient condition: Stable Discharge Plan Plan Patient Disposition: HOME (Self Care) Prescriptions/Referrals Prescriptions/Med Rec: New acetaminophen-codeine 300-30 mg tablet 2 tab PO Q8H MDD 6 PRN (Reason: pain) Qty: 20 0RF lidocaine [Lidoderm] 5 % adhesive patch,medicated 2 patch topical QDAY PRN (Reason: pain) Qty: 30 0RF Rx Instructions: leave on most painful area for up to 12 hrs ibuprofen 600 mg tablet 600 mg PO TID PRN (Reason: fever or pain) Qty: 30 0RF cyclobenzaprine 5 mg tablet 5 mg PO TID PRN (Reason: muscle spasm) Qty: 15 0RF No Action carvedilol [Coreg] 25 MG tablet 12.5 mg PO BID Qty: 0 amiodarone 200 mg Tablet 300 mg PO QDAY Qty: 0 digoxin 125 MCG tablet 125 mcg PO QA Qty: 0 amlodipine-benazepril 5-40 mg Capsule 1 cap PO QDAY Qty: 0 thyroid (pork) [[place] Thyroid] 60 MG tablet 60 mg PO QDAY Qty: 0 furosemide [Lasix] 40 MG tablet 40 mg PO QDAY Qty: 0 potassium chloride 10 mEq Capsule, Extended Release 10 meq PO Q OTHER DAY estradiol-norethindrone acet [Mimvey] 1-0.5 mg Tablet 1 tab PO QDAY nitroglycerin 0.4 mg Tablet, Sublingual 0.4 mg BUCCAL DAILY PRN (Reason: Chest Pain) Myrbetriq 50 mg Tablet Extended Release 24 Hr 50 mg PO QDAY naproxen 500 mg tablet 500 mg PO BID PRN (Reason: pain) Qty: 20 0RF acetaminophen-codeine 300-30 mg tablet 2 tab PO Q8H MDD 6 PRN (Reason: pain) Qty: 20 0RF lidocaine [Lidoderm] 5 % adhesive patch,medicated 2 patch topical QDAY PRN (Reason: pain) Qty: 30 0RF Rx Instructions: leave on most painful area for up to 12 hrs ibuprofen 600 mg tablet 600 mg PO TID PRN (Reason: fever or pain) Qty: 30 0RF cyclobenzaprine 5 mg tablet 5 mg PO TID PRN (Reason: muscle spasm) Qty: 15 0RF Problem List Clinical Impression: Sciatica Patient/Caregiver Discharge Instructions Discharge Activity: activity as tolerated Education Materials: ED Sciatica Additional Instructions: Discharge Instructions from Dr. Coleman: --After evaluation, we are dealing with Sciatica (same as Lumbar Radiculopathy or Spinal Stenosis) where pinched nerve is causing your symptoms.? --This condition is difficult because normal pain medications don?t work very well on nerve pain. --Despite the pain, try to resume your normal chores and activities.? Because inactivity is terrible for this condition.? And activity won?t make your condition worse.? Use a cane of stick in your left hand to help stand and walk.? --Use Ibuprofen and Cyclobenzaprine and Tylenol with codeine and lidocaine patches as needed.? Don't expect the pain to go away completely, hoping to take the edge off.?? --When resting and sleeping, try leftt sided position (with your knees to your chest and bending forward).? This can take some pressure off the nerve and help your pain. --Apply ice or heat if helpful. --See your spinal surgeon next week as scheduled. --Seek immediate medical care with paralysis in your foot, losing control of your bladder or bowels, saddle numbness (anal numbness), or with any concerns.?? Print Language: Hebrew Stand Alone Forms: [facility] Award Info., Patient Portal Info Letter
[2025-05-25] MEDS: MORPHINE SULF INJ 4 MG/ML VIAL 8 MG IM (10:42)
== END 2025-05-25 11:00 | disposition home or self-care (01) ==
LOC: SERX 10:45
PROVIDERS: Emergency Provider Emergency Medicine; PCP Family Medicine
DX: M54.41 Lumbago with sciatica, right side (principal)
CPT/HCPCS: 96372; 99282; J2270